=== PATIENT | male | born 2000 | race Caucasian/White ===

== ENCOUNTER → 2020-05-21 | Outpatient (REF) | payer OTHER | LOC: M WUC 20:18 | PROVIDERS: ATTEND Physician Assistant | DX: Z11.3 Encounter for screening for infections with a predominantly sexual mode of transmission (principal) ==

== ENCOUNTER → 2020-05-22 | Outpatient (CLI) | payer OTHER ==
[2020-05-22 12:27] LABS: HIV 1&2 SCREEN CENTAUR NEGATIVE (NEGATIVE)
[2020-05-26 08:10] LABS: HSV-1 DNA Negative (Negative); HSV-2 DNA Negative (Negative)
== END ==
LOC: M WUC 08:33
PROVIDERS: ATTEND Physician Assistant
DX: Z11.3 Encounter for screening for infections with a predominantly sexual mode of transmission (principal)